=== PATIENT | female | born 1985 | race Caucasian/White ===

== ENCOUNTER → 2021-07-06 | Outpatient (REF) | payer OTHER | LOC: M SFHCWAGY 18:42 | PROVIDERS: ATTEND Obstetrics & Gynecology | DX: D06.9 Carcinoma in situ of cervix, unspecified (principal) ==

== ENCOUNTER → 2021-08-13 | Outpatient (REF) | payer OTHER | LOC: M SFHCWAGY 10:17 | PROVIDERS: ATTEND Obstetrics & Gynecology | DX: D06.9 Carcinoma in situ of cervix, unspecified (principal) ==